=== PATIENT | female | born 1970 | race African-American/Black ===

== ENCOUNTER 2017-06-22 14:25 | Emergency (ER) | payer SELFPAY ==
[~2017-06-22] VITALS: Ht 170.2 cm; Wt 77.1 kg
[~2017-06-22 14:25] MED LIST: LISI10TA2
--- NOTE | 2017-06-22 15:04 | PHYS DOC ---
Past Medical History Past Medical History: Hypertension Past Surgical History: No Surgical History Additional Information: 1 PPD, PT STATES, "ALOT" Alcohol Use: Heavy Additional Information: BEER/WHISKEY, PATIENT STATES, "DRINKS DAILY, BEER & WHISKEY, ALOT." Drug Use: Marijuana, Other Social History Narrative: "WET,ALL OF THEM" Adult General Chief Complaint Chief Complaint: ALCOHOL INTOXICATION HPI HPI Patient is a 46 year old -[place] female who presents with facial trauma. According EMS she fell in the parking lot that was unwitnessed. According to patient she doesn't remember what happened and she states she's been drinking and partying a lot. He is unsure when her last tetanus shot was. Review of Systems Review of Systems Unable to obtain secondary to intoxication Current Medications Current Medications Current Medications Medications (Trade) Dose Ordered Sig/Steffi Start Time Stop Time Status Last Admin Dose Admin Diphtheria/ Tetanus/Acell Pertussis (Boostrix) 0.5 ml ONCE ONCE 06/22/17 15:30 06/22/17 15:31 DC 06/22/17 16:05 0.5 ML Multivitamins 10 ml/Folic Acid 1 mg/Thiamine HCl 100 mg/Sodium Chloride 1,011.2 ml @ 1,000 mls/ hr 1X ONCE 06/22/17 16:15 06/22/17 17:15 DC 06/22/17 16:17 1,000 MLS/HR Sodium Chloride 1,000 ml @ 1,000 mls/hr Q1H 06/22/17 15:30 06/22/17 16:29 DC 06/22/17 16:04 1,000 MLS/HR Allergies Allergies Allergies Coded Allergies Type Severity Reaction Last Updated Verified Penicillins Allergy Intermediate Hives 06/22/17 Yes Physical Exam Physical Exam Constitutional: Well developed, well nourished, no acute distress, non-toxic appearance. [] HENT: Normocephalic, bilateral external ears normal, oropharynx moist, no oral exudates, nose normal. Abrasion left forehead, tender to palpation over left zygomatic arch, c-collar in place Eyes: PERRLA, EOMI, conjunctiva normal, no discharge. [] Neck: Normal range of motion, no tenderness, supple, no stridor. [] Cardiovascular:Heart rate regular rhythm, no murmur [] Lungs & Thorax: Bilateral breath sounds clear to auscultation [] Abdomen: Bowel sounds normal, soft, no tenderness, no masses, no pulsatile masses. [] Skin: Warm, dry, no erythema, no rash. [] Back: No tenderness, no CVA tenderness. [] Extremities: No tenderness, no cyanosis, no clubbing, ROM intact, no edema. [] Neurologic: Alert and oriented X 3, normal motor function, normal sensory function, no focal deficits noted. [] Psychologic: Affect normal, judgement normal, mood normal. [] Current Patient Data Vital Signs Vital Signs Date Time Temp Pulse Resp B/P (MAP) Pulse Ox O2 Delivery O2 Flow Rate FiO2 06/22/17 18:00 84 25 159/106 (123) 94 Room Air 06/22/17 14:25 98.2 98.2 Lab Values Laboratory Tests Test 06/22/17 14:42 06/22/17 15:25 06/22/17 16:05 Ethyl Alcohol Level 283 mg/dL (0-10) H White Blood Count 5.8 x10^3/uL (4.0-11.0) Red Blood Count 4.58 x10^6/uL (3.50-5.40) Hemoglobin 11.6 g/dL (12.0-15.5) L Hematocrit 36.8 % (36.0-47.0) Mean Corpuscular Volume 80 fL (79-100) Mean Corpuscular Hemoglobin 25 pg (25-35) Mean Corpuscular Hemoglobin Concent 32 g/dL (31-37) Red Cell Distribution Width 23.2 % (11.5-14.5) H Platelet Count 204 x10^3/uL (140-400) Neutrophils (%) (Auto) 42 % (31-73) Lymphocytes (%) (Auto) 45 % (24-48) Monocytes (%) (Auto) 7 % (0-9) Eosinophils (%) (Auto) 5 % (0-3) H Basophils (%) (Auto) 1 % (0-3) Neutrophils # (Auto) 2.4 x10^3uL (1.8-7.7) Lymphocytes # (Auto) 2.6 x10^3/uL (1.0-4.8) Monocytes # (Auto) 0.4 x10^3/uL (0.0-1.1) Eosinophils # (Auto) 0.3 x10^3/uL (0.0-0.7) Basophils # (Auto) 0.1 x10^3/uL (0.0-0.2) Segmented Neutrophils % 53 % (35-66) Band Neutrophils % 1 % (0-9) Lymphocytes % 32 % (24-48) Atypical Lymphocytes % (Manual) 2 % (0-0) H Monocytes % 10 % (0-10) Eosinophils % 2 % (0-5) Platelet Estimate Adequate (ADEQUATE) Giant Platelets Few Anisocytosis Mod Ovalocytes Few Prothrombin Time 13.6 SEC (11.7-14.0) Prothrombin Time INR 1.1 (0.8-1.1) Sodium Level 143 mmol/L (136-145) Potassium Level 3.5 mmol/L (3.5-5.1) Chloride Level 108 mmol/L (98-107) H Carbon Dioxide Level 20 mmol/L (21-32) L Anion Gap 15 (6-14) H Blood Urea Nitrogen 4 mg/dL (7-20) L Creatinine 0.6 mg/dL (0.6-1.0) Estimated GFR (Cockcroft-Gault) 130.2 Glucose Level 81 mg/dL (70-99) Calcium Level 8.6 mg/dL (8.5-10.1) Magnesium Level 1.7 mg/dL (1.8-2.4) L Total Bilirubin 0.2 mg/dL (0.2-1.0) Direct Bilirubin 0.1 mg/dL (0.0-0.2) Aspartate Amino Transferase (AST) 74 U/L (15-37) H Alanine Aminotransferase (ALT) 51 U/L (14-59) Alkaline Phosphatase 68 U/L (46-116) Creatine Kinase 66 U/L (26-192) Creatine Kinase MB (Mass) < 0.5 ng/mL (0.0-3.6) Creatine Kinase MB Relative Index % (0-4) Troponin I Quantitative < 0.017 ng/mL (0.000-0.055) ZU-Txv-W-Type Natriuretic Peptide 290 pg/mL (0-124) H Total Protein 7.8 g/dL (6.4-8.2) Albumin 3.4 g/dL (3.4-5.0) Lipase 80 U/L (73-393) Thyroid Stimulating Hormone (TSH) 1.704 uIU/mL (0.358-3.74) Urine Opiates Screen Neg (NEG) Urine Methadone Screen Neg (NEG) Urine Barbiturates Neg (NEG) Urine Phencyclidine Screen Pos (NEG) Urine Amphetamine/Methamphetamine Neg (NEG) Urine Benzodiazepines Screen Neg (NEG) Urine Cocaine Screen Neg (NEG) Urine Cannabinoids Screen Pos (NEG) Urine Ethyl Alcohol Pos (NEG) Laboratory Tests 06/22/17 15:25 Laboratory Tests 06/22/17 15:25 EKG EKG EKG shows sinus tachycardia [address] elevations or T-wave inversions, LVH noted, normal axis, QTC 460 ms, as interpreted by me. Radiology/Procedures Radiology/Procedures [facility] [address] [place] [address] IMAGING REPORT Signed PATIENT: ELIZABETH AGUIRRE ACCOUNT: [id number] : 1970 LOCATION: ER AGE: 46 SEX: F EXAM STATUS: REG ER ORD. PHYSICIAN: BETSY MAR MD REASON: fall with head trauma PROCEDURE: CT HEAD AND MAXILLOFACIAL WO CT HEAD, MAXILLOFACIAL AND CERVICAL SPINE WITHOUT CONTRAST History: 46-year-old female status post fall with laceration to the face. Comparison: None. Procedure: Axial images are obtained of the head from the skull base through the vertex without IV contrast. Noncontrast helical CT of the facial bones and cervical spine was performed. Axial, sagittal, and coronal reconstructions were obtained. PQRS compliance statement: One or more of the following individualized dose reduction techniques were utilized for this examination: 1. Automated exposure control 2. Adjustment of the mA and/or kV according to patient size 3. Use of iterative reconstruction technique Head Findings: The ventricles and sulci are normal for the patient's age. No mass-effect, midline shift, hemorrhage or obvious acute infarction is identified. Bone windows demonstrate no significant calvarial abnormality. There is soft tissue swelling with laceration present over the inferior right frontal bone. Mastoid air cells are well aerated. Maxillofacial Findings: There is mild angulation of the left nasal bone which may represent an age-indeterminate fracture, without overlying soft tissue swelling seen. Remainder of the facial bones are intact. Globes and orbits are unremarkable. There is scattered mucosal thickening present within the paranasal sinuses, without an air-fluid level present. Cervical Spine Findings: There is no evidence of displaced fracture or dislocation is seen. There is a linear lucency obliquely oriented through the right transverse process of T7, best visualized on the coronal images 22-23, and sagittal image 32. This is not well visualized on the axial images. 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 There is straightening of normal cervical lordosis, with alignment maintained. Vertebral body heights are maintained. Posterior elements are intact. Degenerative changes are present throughout. Visualized soft tissues of the neck demonstrate no significant abnormalities. The visualized lung apices are clear. Incidentally noted is chronic appearing nonunion of the spinous process of T1. IMPRESSION: 1. No acute intracranial abnormality. 2. Mild angulation of the left nasal bone may represent an age-indeterminate fracture, no overlying soft tissue swelling seen. Remainder of the facial bones are intact. 3. Obliquely oriented lucency seen within the right transverse process of C7. This may represent a nondisplaced fracture. Otherwise, vertebral bodies are aligned without compressive deformity. Findings relayed to the ER physician at 1608 p.m. on 06/22/2017. Electronically signed by: Manju Kessler MD (06/22/2017 4:09 PM) [facility] [place] DICTATED and SIGNED BY: MANJU KESSLER MD DATE: 06/22/17 1553 CC: BETSY MAR MD; NON,STAFF ~ Impressions: Closed head injury Scalp contusion Alcohol abuse PCP abuse Course & Med Decision Making Course & Med Decision Making Pertinent Labs and Imaging studies reviewed. (See chart for details) CT head and face did not show any acute fractures. CT of her cervical spine's or possible C7 transverse fracture. Spoke with Dr. Swift who states she is stable to be discharged home without a c-collar. Her c-collar was moved and the patient denied any neck pain or tenderness. Patient received 1 L normal saline and then 1 L of banana bag. Patient's been able to ambulate department without any difficulties and has been mentating appropriately. She was watched for 4 hours and 22 minutes prior to discharge. She is in stable condition with return precautions. Dragon Disclaimer Dragon Disclaimer This electronic medical record was generated, in whole or in part, using a voice recognition dictation system. Departure Departure Impression: Primary Impression: Closed head injury Disposition: HOME, SELF-CARE Condition: STABLE Referrals: NON,STAFF (PCP) Patient Instructions: Head Injury, Adult Additional Instructions: You fell and injured your head. You have a small abrasion on your scalp. The CAT scan of your head and face did not show any abnormalities. You do have a stable possible fracture of your neck. I spoke with neurosurgery who states that he can be discharged home without any follow-up. If you develop severe neck pain, numbness in your arms or legs, or weakness in your arms or legs please return back to the ER immediately. You should decrease the amount of alcohol and PCP that you use. Problem Qualifiers Primary Impression: Closed head injury Encounter type: initial encounter Qualified Codes: S09.90XA - Unspecified injury of head, initial encounter BETSY MAR MD Jun 22, 2017 15:03
[2017-06-22] MEDS ORDERED: DIPHTH,PERTUSS(ACELL),TET TOX 0.5 ML DISP.SYRIN. VAX IM ONE (15:30)
[2017-06-22] MEDS ORDERED: IV NORMAL SALINE 1000ML BAG 1,000 ML IV SCH (15:30)
[2017-06-22 15:52] LABS: BASO # 0.1 x10^3/uL (0.0-0.2); BASO % 1 % (0-3); CALCIUM 8.6 mg/dL (8.5-10.1); CREATININE 0.6 mg/dL (0.6-1.0); EOS % 5 % (0-3); GFR 130.2; HEMATOCRIT 36.8 % (36.0-47.0); HEMOGLOBIN 11.6 g/dL (12.0-15.5); LYMPH # 2.6 x10^3/uL (1.0-4.8); LYMPH % 45 % (24-48); MEAN CORPUSCULAR HEMOGLOBIN 25 pg (25-35); MEAN CORPUSCULAR HGB CONC 32 g/dL (31-37); MEAN CORPUSCULAR VOLUME 80 fL (79-100); MONO % 7 % (0-9); NEUT % 42 % (31-73); PLATELET COUNT 204 x10^3/uL (140-400); POTASSIUM 3.5 mmol/L (3.5-5.1); RED BLOOD COUNT 4.58 x10^6/uL (3.50-5.40); RED CELL DISTRIBUTION WIDTH 23.2 % (11.5-14.5); WHITE BLOOD COUNT 5.8 x10^3/uL (4.0-11.0)
[2017-06-22 15:59] LABS: ALBUMIN 3.4 g/dL (3.4-5.0); DIRECT BILIRUBIN 0.1 mg/dL (0.0-0.2); MAGNESIUM 1.7 mg/dL (1.8-2.4); TOTAL BILIRUBIN 0.2 mg/dL (0.2-1.0); TOTAL PROTEIN 7.8 g/dL (6.4-8.2)
[2017-06-22 16:03] LABS: INR 1.1 (0.8-1.1); PROTHROMBIN TIME PATIENT 13.6 SEC (11.7-14.0)
[2017-06-22 16:05] LABS: CKMB MASS < 0.5 ng/mL (0.0-3.6); CREATINE KINASE 66 U/L (26-192)
--- NOTE | 2017-06-22 16:13 | RAD ---
CT HEAD, MAXILLOFACIAL AND CERVICAL SPINE WITHOUT CONTRAST History: 46-year-old female status post fall with laceration to the face. Comparison: None. Procedure: Axial images are obtained of the head from the skull base through the vertex without IV contrast. Noncontrast helical CT of the facial bones and cervical spine was performed. Axial, sagittal, and coronal reconstructions were obtained. PQRS compliance statement: One or more of the following individualized dose reduction techniques were utilized for this examination: 1. Automated exposure control 2. Adjustment of the mA and/or kV according to patient size 3. Use of iterative reconstruction technique Head Findings: The ventricles and sulci are normal for the patient's age. No mass-effect, midline shift, hemorrhage or obvious acute infarction is identified. Bone windows demonstrate no significant calvarial abnormality. There is soft tissue swelling with laceration present over the inferior right frontal bone. Mastoid air cells are well aerated. Maxillofacial Findings: There is mild angulation of the left nasal bone which may represent an age-indeterminate fracture, without overlying soft tissue swelling seen. Remainder of the facial bones are intact. Globes and orbits are unremarkable. There is scattered mucosal thickening present within the paranasal sinuses, without an air-fluid level present. Cervical Spine Findings: There is no evidence of displaced fracture or dislocation is seen. There is a linear lucency obliquely oriented through the right transverse process of T7, best visualized on the coronal images 22-23, and sagittal image 32. This is not well visualized on the axial images. 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 There is straightening of normal cervical lordosis, with alignment maintained. Vertebral body heights are maintained. Posterior elements are intact. Degenerative changes are present throughout. Visualized soft tissues of the neck demonstrate no significant abnormalities. The visualized lung apices are clear. Incidentally noted is chronic appearing nonunion of the spinous process of T1. IMPRESSION: 1. No acute intracranial abnormality. 2. Mild angulation of the left nasal bone may represent an age-indeterminate fracture, no overlying soft tissue swelling seen. Remainder of the facial bones are intact. 3. Obliquely oriented lucency seen within the right transverse process of C7. This may represent a nondisplaced fracture. Otherwise, vertebral bodies are aligned without compressive deformity. Findings relayed to the ER physician at 1608 p.m. on 06/22/2017. Electronically signed by: Christine Kessler MD (06/22/2017 4:09 PM) [facility] [place]
[2017-06-22] MEDS ORDERED: MULTIVIT INFUSN,ADULT 4,VIT K 10 ML, FOLIC ACID 1 MG, THIAMINE 100 MG in IV NORMAL SALI... IV ONE (16:15)
[2017-06-22 16:37] LABS: BARBITURATES NEG (NEG); BENZODIAZEPINES NEG (NEG); CANNABINOIDS POS (NEG); COCAINE NEG (NEG); METHADONE NEG (NEG); OPIATES NEG (NEG); PHENCYCLIDINE POS (NEG)
[2017-06-22 17:03] LABS: % EOS 2 % (0-5); ANISOCYTOSIS MOD; OVALOCYTES FEW; PLT ESTIMATE ADEQUATE (ADEQUATE)
--- NOTE | 2017-06-22 17:33 | EKG ---
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
[2017-06-22 19:02] VITALS: BP 148/100
--- NOTE | 2017-06-23 08:46 | RAD ---
AP chest. History: Fall AP view was taken of the chest. Lungs are clear. Heart is normal in size without heart failure. There is no effusion. Mediastinum is not widened. Impression: 1. No acute chest disease.
== END 2017-06-22 19:14 | disposition home or self-care (01) ==
LOC: ER 14:25
DX: S00.81XA Abrasion of other part of head, initial encounter (principal); S09.90XA Unspecified injury of head, initial encounter; I10 Essential (primary) hypertension; F17.200 Nicotine dependence, unspecified, uncomplicated; Z88.0 Allergy status to penicillin; W18.39XA Other fall on same level, initial encounter; Y93.89 Activity, other specified; Y92.481 Parking lot as the place of occurrence of the external cause; Y99.8 Other external cause status
CPT/HCPCS: 36415; 70450; 70486; 71010; 72125; 80048; 80076; 80307; 82553; 83690; 83735; 83880; 84443; 84484; 85007; 85025; 85610; 90471; 90715; 93005; 96365; 99285; G0480; J7030; G0479